=== PATIENT | female | born 1955 | race Caucasian/White ===

== ENCOUNTER 2019-11-07 11:58 | Outpatient (CLI) | payer MEDICARE ==
--- NOTE | 2019-11-07 13:11 | RAD ---
Cervical spine 3 views: 11/07/2019 COMPARISON: 08/08/2019 HISTORY: Cervical radiculopathy FINDINGS: Anterior discectomy and fusion hardware noted at C5-6. There is a metallic disc prosthesis at C6-7. The lateral examination demonstrates no anterolisthesis or retrolisthesis. No prevertebral soft tissu e swelling is noted. There is prominent right-sided facet and uncovertebral osteophyte formation at C4-5 and C5-6. The ope n-mouth odontoid view demonstrates a grossly unremarkable dens and C1-2 articulation. IMPRESSION: Postoperative and degenerative changes of the cervical spine as detailed above.
== END 2019-11-07 11:59 | disposition home or self-care (01) ==
LOC: NAV RAD 11:58
PROVIDERS: ATTEND Neurological Surgery
DX: M47.22 Other spondylosis with radiculopathy, cervical region (principal); Z98.890 Other specified postprocedural states
CPT/HCPCS: 72040